=== PATIENT | female | born 2000 | race Caucasian/White ===

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

== ENCOUNTER 2022-01-24 18:56 | Emergency (ER) | payer OTHER, SELFPAY ==
[2022-01-24 19:05] VITALS: BP 108/63; PULSE 72; RESP 16; TEMP 36.7; O2SAT 99
--- NOTE | 2022-01-24 19:08 | ED.SKABFB ---
HPI - Skin/Abscess/Foreign Bdy General Chief complaint: Skin/Abscess/Foreign Body Stated complaint: Bump In Osman Button Time Seen by Provider: 01/24/22 19:07 Source: patient Mode of arrival: ambulatory Limitations: no limitations History of Present Illness HPI narrative: Ms Resendiz is a 21-year-old female patient presenting to the clinic today with complaints of a possible hernia. She reports that she 1st noticed her belly button sticking out 2-3 days ago and it is red and swollen. She denies any fever chills. She denies trying to pop or squeeze this area. Patient does have piercing of the navel. Related Data Home Medications Medication Instructions Recorded Confirmed guanfacine 1 mg tablet 1 mg PO DAILY 10/10/19 01/24/22 lisdexamfetamine 50 mg capsule 50 mg PO DAILY 10/10/19 01/24/22 (Vyvanse) risperidone 0.5 mg tablet 0.5 mg PO BID 10/10/19 01/24/22 topiramate 25 mg tablet 50 mg PO HS 10/10/19 01/24/22 divalproex 250 mg tablet,delayed 250 mg PO DAILY 12/04/21 01/24/22 release etonogestrel 68 mg subdermal 68 mg subdermal DIRECTED 12/04/21 01/24/22 implant (Nexplanon) sertraline 100 mg tablet 100 mg PO DAILY 12/04/21 01/24/22 Allergies Allergy/AdvReac Type Severity Reaction Status Date / Time lamotrigine [From Lamictal] Allergy Blister Verified 01/24/22 19:12 Review of Systems Review of Systems: Pertinent positives per HPI. Patient denies any fever, chills, rash, headache, visual changes, dizziness, cough, runny nose, sore throat, shortness of breath, chest pain, palpitations, nausea, vomiting, diarrhea, constipation, abdominal pain, or any urinary issues. [facility] Past Medical History Medical History History of chlamydia Surgical History Surgical History History of oral surgery Family History Family History Mother Family history non-contributory Social History Social History Smoking status: Never smoker Alcohol intake: never Substance use: never Gender identity (if verbalized by the patient): Female Sexual Orientation (if Verbalized by the Patient): Straight or Heterosexual Spiritual care concerns: No Comments At the time of my signature, I reviewed and agree with the nursing past medical, surgical, social, and family history. There is no relevant family history pertinent to the patient complaint. Exam Narrative: General: Well-developed, well nourished, in no apparent distress Head: Normocephalic, atraumatic. Cardio: Regular rate and rhythm, s1 and s2 normal, no murmur appreciated. Resp: Clear to auscultation bilaterally, no rhonchi, rales, wheezing or rubs. Integumentary: [place], warm, and dry, redness, swelling, and tenderness to the umbilicus. No drainage noted. No induration or surrounding redness Course Course Emergency Course: Portions of this record may have been created with voice recognition software. Level of Care: Express Care Visit Vital Signs Vital signs: Vital Signs Temperature 36.7 C 01/24/22 19:05 Pulse Rate 72 01/24/22 19:05 Respiratory Rate 16 01/24/22 19:05 Blood Pressure 108/63 01/24/22 19:05 Pulse Oximetry 99 01/24/22 19:05 Oxygen Delivery Room Air 01/24/22 19:05 Temperature 36.7 C 01/24/22 19:05 Pulse Rate 72 01/24/22 19:05 Respiratory Rate 16 01/24/22 19:05 Blood Pressure 108/63 01/24/22 19:05 Pulse Oximetry 99 01/24/22 19:05 Oxygen Delivery Room Air 01/24/22 19:05 Vital signs reviewed MDM - Skin/Abscess/Foreign Bdy MDM Narrative Medical decision making narrative: At the time of visit patient is resting comfortably on the exam table. I suspect the patient has an infected umbilicus. prescription for mupirocin cream was sent to the pharmacy and nicholas
== END 2022-01-24 19:13 | disposition home or self-care (01) ==
PROVIDERS: Emergency Provider Nurse Practitioner Family; PCP Pediatrics Adolescent Medicine
DX: S31.145A Puncture wound of abdominal wall with foreign body, periumbilic region without penetration into peritoneal cavity, initial encounter (principal); L08.9 Local infection of the skin and subcutaneous tissue, unspecified; X58.XXXA Exposure to other specified factors, initial encounter
CPT/HCPCS: 99211; G0463

== ENCOUNTER 2022-05-15 18:40 | Emergency (ER) | payer OTHER, SELFPAY ==
[2022-05-15 18:43] VITALS: BP 110/65; PULSE 117; RESP 18; TEMP 37.1; O2SAT 100
[2022-05-15 19:23] VITALS: BP 100/66; PULSE 80; RESP 14; O2SAT 100
[2022-05-15] MEDS: HYDROcodone/acetaminophen (*CRX) 5-325 MG TABLET 1 TAB PO (20:03)
--- NOTE | 2022-05-15 20:15 | ED.SKABFB ---
HPI - Skin/Abscess/Foreign Bdy General Chief complaint: Skin/Abscess/Foreign Body Stated complaint: abcess on buttocks Time Seen by Provider: 05/15/22 19:43 History of Present Illness HPI narrative: Patient is a 22-year-old female who presents ER with concern for abscess to her buttock. It is located at the gluteal cleft. No drainage. Increasing pain over the last couple days. No previous history of pilonidal cyst. Denies fevers or chills or sweats. Patient has been applying baby powder without improvement. Related Data Home Medications Medication Instructions Recorded Confirmed guanfacine 1 mg tablet 1 mg PO DAILY 10/10/19 01/24/22 lisdexamfetamine 50 mg capsule 50 mg PO DAILY 10/10/19 01/24/22 (Vyvanse) risperidone 0.5 mg tablet 0.5 mg PO BID 10/10/19 01/24/22 topiramate 25 mg tablet 50 mg PO HS 10/10/19 01/24/22 divalproex 250 mg tablet,delayed 250 mg PO DAILY 12/04/21 01/24/22 release etonogestrel 68 mg subdermal 68 mg subdermal DIRECTED 12/04/21 01/24/22 implant (Nexplanon) sertraline 100 mg tablet 100 mg PO DAILY 12/04/21 01/24/22 Allergies Allergy/AdvReac Type Severity Reaction Status Date / Time lamotrigine [From Lamictal] Allergy Blister Verified 05/15/22 19:22 Review of Systems Constitutional: Constitutional: Denies chills and Denies fever(s) Integumentary/Breasts: Skin/Breast: Reports erythema, Denies rash and Denies skin ulcer PMFSH Past Medical History Medical History History of chlamydia Surgical History Surgical History History of oral surgery Family History Family History Mother Family history non-contributory Social History Social History Smoking status: Never smoker Alcohol intake: never Substance use: never Gender identity (if verbalized by the patient): Female Sexual Orientation (if Verbalized by the Patient): Straight or Heterosexual Spiritual care concerns: No Exam Narrative: GENERAL: Well-appearing, well-nourished, and in no acute distress. HEAD: Normocephalic, atraumatic. EXTREMITIES: Normal range of motion. No edema. Buttock: Pilonidal cyst gluteal cleft with induration extending out to half centimeters in either direction. Fluctuance centrally. SKIN: Warm, dry, no rash. NEURO: Alert and oriented x3. PSYCH: Normal mood and affect. Course Course Emergency Course: Pilonidal cyst drained. Patient inadvertently popped it while in the restroom but numbing and extension of the drainage site was required for packing. Discharged home with antibiotics and pain medication. Recommend removing packing in 2 days. Patient and mother verbalized understanding treatment plan. Vital Signs Vital signs: Vital Signs Temperature 98.8 F 05/15/22 18:43 Pulse Rate 117 H 05/15/22 18:43 Respiratory Rate 18 05/15/22 18:43 Blood Pressure 110/65 05/15/22 18:43 Pulse Oximetry 100 05/15/22 18:43 Oxygen Delivery Room Air 05/15/22 18:43 Temperature 98.8 F 05/15/22 18:43 Pulse Rate 80 05/15/22 19:23 Respiratory Rate 14 05/15/22 19:23 Blood Pressure 100/66 05/15/22 19:23 Pulse Oximetry 100 05/15/22 19:23 Oxygen Delivery Room Air 05/15/22 18:43 Procedures Abscess I/D pilonidal: Date of Incision: 05/15/22 Time of Incision: 20:30 Local Anesthetic: lidocaine 2% and with epi Amount of anesthesia used (mL): 5 Technique: incised with #11 blade Irrigation: No Packing used?: iodoform I&D Results: Pus Complications: pain Discharge Plan Discharge Clinical Impression: Pilonidal cyst Patient Disposition: Home, Self-Care Condition: Stable Instructions: Antibiotic Form, Pilonidal Cyst (ED) Additional Instructions: Re
== END 2022-05-15 21:10 | disposition home or self-care (01) ==
PROVIDERS: Emergency Provider Emergency Medicine; PCP Pediatrics Adolescent Medicine
DX: L05.91 Pilonidal cyst without abscess (principal)
CPT/HCPCS: 10080; 99283; A9270

== ENCOUNTER 2022-08-01 09:11 | Emergency (ER) | payer OTHER, SELFPAY ==
[2022-08-01 09:12] VITALS: BP 115/68; PULSE 72; RESP 16; TEMP 36.4; O2SAT 100
[2022-08-01] MEDS: CIPROFLOXACIN 500 MG TAB 750 MG PO (09:46)
[2022-08-01] MEDS: MUPIROCIN 2% OINT 22 GM TUBE 1 APPLIC TOPICAL (09:48)
--- NOTE | 2022-08-01 18:45 | ED.EAR ---
HPI - Ear Problem General Chief complaint: Ear Stated complaint: new ear piercing with swelling and redness Time Seen by Provider: 08/01/22 09:28 History of Present Illness HPI Narrative: Patient just got a new helix piercing 4 days ago, then yesterday noticed some redness and swelling. No fevers or chills. Related Data Home Medications Medication Instructions Recorded Confirmed guanfacine 1 mg tablet 1 mg PO DAILY 10/10/19 05/28/22 lisdexamfetamine 50 mg capsule 50 mg PO DAILY 10/10/19 05/28/22 (Vyvanse) risperidone 0.5 mg tablet 0.5 mg PO BID 10/10/19 05/28/22 topiramate 25 mg tablet 50 mg PO HS 10/10/19 05/28/22 guanfacine 1 mg tablet 1 mg PO BID 07/16/20 07/17/20 lisdexamfetamine 50 mg capsule 50 mg PO DAILY 07/16/20 07/16/20 (Vyvanse) risperidone 0.5 mg tablet 0.25 mg PO BID 07/16/20 07/16/20 sertraline 50 mg tablet 75 mg PO DAILY 07/16/20 07/16/20 tretinoin 0.01 % topical gel 1 applic topical HS 07/17/20 07/17/20 divalproex 250 mg tablet,delayed 250 mg PO DAILY 12/04/21 05/28/22 release etonogestrel 68 mg subdermal 68 mg subdermal DIRECTED 12/04/21 05/28/22 implant (Nexplanon) sertraline 100 mg tablet 100 mg PO DAILY 12/04/21 05/28/22 Allergies Allergy/AdvReac Type Severity Reaction Status Date / Time lamotrigine [From Lamictal] Allergy Blister Verified 08/01/22 09:11 Review of Systems Review of Systems: CONST: No fever. HEENT: ear pain C/V: No chest pain RESP: No cough GI: no nausea/vomiting M/S: No joint pain. SKIN: Redness/swelling L ear NEURO: [No headache or focal numbness or weakness] PSYCH: [No depression] PMFSH Past Medical History Medical History History of chlamydia Surgical History Surgical History History of oral surgery Family History Family History Mother Family history non-contributory Social History Social History (System 05/30/22 @ 10:33 by Kaykay James) Social History: The patient lives at home with her adopted mother and 2 adopted brothers. She is the middle child. She is currently a senior in high school in takes ?skills classes.? She denies any alcohol, tobacco or illicit substance use. Smoking status: Never smoker Second hand tobacco smoke exposure: No Alcohol intake: never Substance use: never Substance use type: does not use Gender identity (if verbalized by the patient): Female Sexual Orientation (if Verbalized by the Patient): Straight or Heterosexual Spiritual care concerns: No Exam Narrative: EXAMINATION OF ORGAN SYSTEMS/BODY AREAS: Constitutional: Vital signs per nursing GENERAL: Appears slightly uncomfortable HEAD: Normal with no signs of head trauma. EYES: EOMI, conjunctiva normal ENT: Hearing intact, there is swelling and redness of the helix of the left ear around a piercing, there is no mastoid tenderness, nor tenderness to the facial bones LUNGS: Nonlabored breathing. HEART: [Regular rate and rhythm] ABD: [Soft], [nontender to palpation] EXT: Normal range of motion SKIN: [No rashes or lesions.] NEURO: [Alert and oriented x 3. No gross focal sensory or strength deficits.] PSYCH: Normal affect Course Vital Signs Vital signs: Vital Signs Temperature 97.5 F L 08/01/22 09:12 Pulse Rate 72 08/01/22 09:12 Respiratory Rate 16 08/01/22 09:12 Blood Pressure 115/68 08/01/22 09:12 Pulse Oximetry 100 08/01/22 09:12 Oxygen Delivery Room Air 08/01/22 09:12 Temperature 97.5 F L 08/01/22 09:12 Pulse Rate 72 08/01/22 09:12 Respiratory Rate 16 08/01/22 09:12 Blood Pressure 115/68 08/01/22 09:12 Pulse Oximetry 100 08/01/22 09:12 Oxygen Delivery Room Air 08/01/22 09:12 Medical Decision Making [facility] Narrative Medical decision making narrative: Patient presents here with infected helix pierc
== END 2022-08-01 10:57 | disposition home or self-care (01) ==
PROVIDERS: Emergency Provider Emergency Medicine; PCP Pediatrics Adolescent Medicine
DX: H61.002 Unspecified perichondritis of left external ear (principal)
CPT/HCPCS: 87070; 87147; 87186; 87205; 99283; A9270

== ENCOUNTER 2023-09-20 12:39 | Emergency (ER) | payer OTHER, SELFPAY ==
--- NOTE | 2023-09-20 12:43 | ED.FEMALEGU ---
HPI - Female Genitourinary General Chief complaint: Urogenital-Female Stated complaint: STD Testing Time Seen by Provider: 09/20/23 12:53 Source: patient and RN notes reviewed Mode of arrival: ambulatory Limitations: no limitations History of Present Illness HPI Narrative: 23-year-old female presents with concern for STD. She reports having intercourse with a partner recently who has given her chlamydia in the past. Reports she was last treated for chlamydia in December. She denies abnormal vaginal discharge, reports foul vaginal odor. She denies abdominal pain, fever, aches, chills, sweats MD elicited complaint: possible STD Related Data Home Medications Medication Instructions Recorded Confirmed risperidone 0.5 mg tablet 0.5 mg PO BID 10/10/19 09/20/23 topiramate 25 mg tablet 50 mg PO HS 10/10/19 09/20/23 lisdexamfetamine 50 mg capsule 50 mg PO DAILY 07/16/20 09/20/23 (Vyvanse) sertraline 50 mg tablet 75 mg PO DAILY 07/16/20 09/20/23 tretinoin 0.01 % topical gel 1 applic topical HS 07/17/20 09/20/23 divalproex 250 mg tablet,delayed 250 mg PO DAILY 12/04/21 09/20/23 release etonogestrel 68 mg subdermal 68 mg subdermal DIRECTED 12/04/21 09/20/23 implant (Nexplanon) sertraline 100 mg tablet 100 mg PO DAILY 12/04/21 09/20/23 guanfacine 2 mg tablet,extended 2 mg PO DAILY 09/20/23 09/20/23 release 24 hr Allergies Allergy/AdvReac Type Severity Reaction Status Date / Time lamotrigine [From Lamictal] Allergy Blister Verified 09/20/23 12:40 Review of Systems Review of Systems: CONSTITUTIONAL: Denies malaise, chills, sweats, or fever. CARDIOVASCULAR: Denies chest pain, palpitations, or edema. RESPIRATORY: Denies cough or dyspnea. GASTROINTESTINAL: Denies abdominal pain, nausea, vomiting, diarrhea GENITOURINARY: Denies abnormal vaginal discharge, dysuria, frequency, urgency, suprapubic pressure. Denies flank pain or hematuria. Reports abnormal vaginal odor SKIN: Denies rash or itching. MUSCULOSKELETAL: Denies back pain or myalgia. All systems reviewed & are unremarkable except as noted in HPI and below PMFSH Past Medical History Medical History History of chlamydia Surgical History Surgical History History of oral surgery Family History Family History Mother Family history non-contributory Social History Social History (System 05/30/22 @ 10:33 by Kaykay James) Social History: The patient lives at home with her adopted mother and 2 adopted brothers. She is the middle child. She is currently a senior in high school in takes ?skills classes.? She denies any alcohol, tobacco or illicit substance use. Smoking status: Never smoker Second hand tobacco smoke exposure: No Alcohol intake: never Substance use: never Substance use type: does not use Gender identity (if verbalized by the patient): Female Sexual Orientation (if Verbalized by the Patient): Straight or Heterosexual Spiritual care concerns: No Comments At time of signature, agree with nursing past medical, surgical, social and family history. There is no relevant family history pertinent to the presenting complaint Exam Narrative: GENERAL: Well-appearing, well-nourished, and in no acute distress. HEAD: Normocephalic. EYES: PERRLA, conjunctivae clear. NECK: Supple. No lymphadenopathy CHEST: Clear to auscultation. No respiratory distress. HEART: Regular rate and rhythm. SKIN: Warm, dry, no rash. NEURO: Alert and oriented x3. PSYCH: Normal mood and affect Course Course Emergency Course: Patient's urine has 1+ leukocytes, 1+ blood. However patient is not having typical UTI symptoms, is more concern for STI. We will do urine culture and treat only if necessary for UTI. Patient wanted to get treated today for STI. She was given
[2023-09-20 12:48] VITALS: BP 132/73; PULSE 83; RESP 16; TEMP 36.6; O2SAT 100
[2023-09-20] MEDS: cefTRIAXone 500 MG, LIDOCAINE HCL 1% LOCAL INJ 1 ML IM (13:39)
[2023-09-20 20:04] LABS: Trichomonas Vag PCR NOT DETECTED (NOT DETECTE)
[2023-09-20 20:27] LABS: Chlamydia trachomatis DETECTED (NOT DETECTE); Neisseria gonorrhoeae PCR NOT DETECTED (NOT DETECTE)
== END 2023-09-20 13:50 | disposition home or self-care (01) ==
PROVIDERS: Emergency Provider Nurse Practitioner; PCP Pediatrics Adolescent Medicine
DX: Z11.3 Encounter for screening for infections with a predominantly sexual mode of transmission (principal)
CPT/HCPCS: 81003; 87081; 87086; 87088; 87491; 87591; 87661; 96372; 99214; G0463; J0696

== ENCOUNTER 2023-10-30 14:11 | Emergency (ER) | payer OTHER, SELFPAY ==
[2023-10-30 14:21] VITALS: BP 112/64; PULSE 77; RESP 16; TEMP 36.4; O2SAT 99
--- NOTE | 2023-10-30 14:51 | ED.GENADULT ---
HPI - General Adult General Chief complaint: Urogenital-Female Stated complaint: STI testing Source: patient Mode of arrival: ambulatory Limitations: no limitations History of Present Illness HPI narrative: Patient presents requesting STI evaluation. She was seen here at the end of August at which time she tested positive for chlamydia. Both she and her partner were treated at that time. She has concerns that he has cheated on her and would like additional testing. She did break up with him due to ongoing issues in the relationship. She reports some intermittent vaginal odor over the last 1-2 weeks. She denies any fever, chills, nausea, vomiting, abdominal pain, vaginal discharge, vaginal bleeding. She states the odor is consistent with the odor she has experience with chlamydia in the past. She has a [employer] Home Medications Medication Instructions Recorded Confirmed risperidone 0.5 mg tablet 0.5 mg PO BID 10/10/19 10/30/23 topiramate 25 mg tablet 50 mg PO HS 10/10/19 10/30/23 lisdexamfetamine 50 mg capsule 50 mg PO DAILY 07/16/20 10/30/23 (Vyvanse) sertraline 50 mg tablet 75 mg PO DAILY 07/16/20 10/30/23 tretinoin 0.01 % topical gel 1 applic topical HS 07/17/20 10/30/23 divalproex 250 mg tablet,delayed 250 mg PO DAILY 12/04/21 10/30/23 release etonogestrel 68 mg subdermal 68 mg subdermal DIRECTED 12/04/21 10/30/23 implant (Nexplanon) sertraline 100 mg tablet 100 mg PO DAILY 12/04/21 10/30/23 guanfacine 2 mg tablet,extended 2 mg PO DAILY 09/20/23 10/30/23 release 24 hr Allergies Allergy/AdvReac Type Severity Reaction Status Date / Time lamotrigine [From Lamictal] Allergy Blister Verified 09/20/23 12:40 Review of Systems Review of Systems: CONSTITUTIONAL: Denies fever, chills, or sweats. EYES: Denies visual changes, redness, or discharge. ENT: Denies rhinorrhea, congestion, sore throat, or otalgia. CARDIOVASCULAR: Denies chest pain, palpitations, or edema. RESPIRATORY: Denies cough or dyspnea. GASTROINTESTINAL: Denies abdominal pain, nausea, vomiting, or diarrhea. GENITOURINARY: Reports intermittent vaginal odor. Denies vaginal discharge or bleeding. Denies dysuria or hematuria. SKIN: Denies rash or itching. MUSCULOSKELETAL: Denies back pain, joint pain, or myalgia. NEUROLOGIC: Denies headache, numbness, dizziness, or weakness. PSYCHIATRIC: Denies anxiety or depression. PMFSH Past Medical History Medical History ADHD Anxiety Bipolar 1 disorder Depression Depression General learning disability History of chlamydia Surgical History Surgical History History of oral surgery History of oral surgery Family History Family History Mother Family history non-contributory Other Adopted Unknown family medical history Social History Social History Social History: The patient lives at home with her adopted mother and 2 adopted brothers. She is the middle child. She is currently a senior in high school in takes ?skills classes.? She denies any alcohol, tobacco or illicit substance use. Smoking status: Never smoker Second hand tobacco smoke exposure: No Alcohol intake: never Substance use: never Substance use type: does not use Gender identity (if verbalized by the patient): Female Sexual Orientation (if Verbalized by the Patient): Straight or Heterosexual Spiritual care concerns: No Exam Narrative: GENERAL: Well-appearing, well-nourished, and in no acute distress. HEAD: Normocephalic, atraumatic. EYES: PERRLA and EOMI. ENT: Nares clear, no rhinorrhea or epistaxis. Mucous membranes moist. Oropharynx without tonsillar hypertrophy exudate or other lesions. Bilateral TMs pearly hernandez nonbulging NECK: Suppl
[2023-10-30 15:00] LABS: EDUAAPPEAR Clear; EDUABILI 1+; EDUABLOOD Negative; EDUACOLOR1 Yellow; EDUAGLUCOSE Negative; EDUAKETONE Trace; EDUALEUKO 3+; EDUANITRATE Negative; EDUAPROTEIN 2+; EDUASPGRAVITY 1.025
[2023-10-30 21:23] LABS: Trichomonas Vag PCR NOT DETECTED (NOT DETECTE)
[2023-10-30 21:48] LABS: Chlamydia trachomatis NOT DETECTED (NOT DETECTE); Neisseria gonorrhoeae PCR DETECTED (NOT DETECTE)
== END 2023-10-30 14:56 | disposition home or self-care (01) ==
PROVIDERS: Emergency Provider Nurse Practitioner; PCP Pediatrics Adolescent Medicine
DX: Z20.822 Contact with and (suspected) exposure to COVID-19 (principal); F90.9 Attention-deficit hyperactivity disorder, unspecified type; F41.9 Anxiety disorder, unspecified; F31.9 Bipolar disorder, unspecified
CPT/HCPCS: 81003; 87077; 87086; 87088; 87491; 87591; 87661; 99214; G0463

== ENCOUNTER 2023-11-05 13:03 | Emergency (ER) | payer OTHER, SELFPAY ==
[2023-11-05 13:12] VITALS: BP 130/67; PULSE 72; RESP 16; TEMP 36.3; O2SAT 100
--- NOTE | 2023-11-05 13:15 | ED.GENADULT ---
HPI - General Adult General Chief complaint: Unspecified Stated complaint: STD treatment Time Seen by Provider: 11/05/23 13:15 Source: patient, RN notes reviewed and old records reviewed Mode of arrival: ambulatory Limitations: no limitations History of Present Illness HPI narrative: 23-year-old female presents to the [facility] after testing positive for gonorrhea on the 29 of October. Patient has no complaints at this time Related Data Home Medications Medication Instructions Recorded Confirmed risperidone 0.5 mg tablet 0.5 mg PO BID 10/10/19 11/05/23 topiramate 25 mg tablet 50 mg PO HS 10/10/19 11/05/23 lisdexamfetamine 50 mg capsule 50 mg PO DAILY 07/16/20 11/05/23 (Vyvanse) sertraline 50 mg tablet 75 mg PO DAILY 07/16/20 11/05/23 tretinoin 0.01 % topical gel 1 applic topical HS 07/17/20 11/05/23 divalproex 250 mg tablet,delayed 250 mg PO DAILY 12/04/21 11/05/23 release etonogestrel 68 mg subdermal 68 mg subdermal DIRECTED 12/04/21 11/05/23 implant (Nexplanon) sertraline 100 mg tablet 100 mg PO DAILY 12/04/21 11/05/23 guanfacine 2 mg tablet,extended 2 mg PO DAILY 09/20/23 11/05/23 release 24 hr Allergies Allergy/AdvReac Type Severity Reaction Status Date / Time lamotrigine [From Lamictal] Allergy Blister Verified 11/05/23 13:09 Review of Systems Review of Systems: All systems reviewed & are unremarkable except as noted in HPI and below Constitutional: Constitutional: Reports no additional constitutional complaints Eyes: Eyes: Reports no additional eye complaints ENT: Reports system reviewed and no additional complaints, except as documented Cardiovascular: Cardiovascular: Reports no additional cardiovascular complaints, Denies chest pain and Denies dyspnea Respiratory: Respiratory: Reports no additional respiratory complaints, Denies chest congestion, Denies cough and Denies dyspnea Gastrointestinal: Gastrointestinal: Reports no additional gastrointestinal complaints, Denies abdominal pain, Denies nausea and Denies vomiting Musculoskeletal: Musculoskeletal: Reports no additional musculoskeletal complaints Integumentary/Breasts: Skin/Breast: Reports system reviewed and no additional complaints, except as docu Neurologic: Reports system reviewed and no additional complaints, except as documented Psychiatric: Psychiatric: Reports no additional psychiatric complaints Allergic/Immunologic: Allergic/Immunologic: Reports no additional allergic/immunologic complaints [facility] Past Medical History Medical History ADHD Anxiety Bipolar 1 disorder Depression Depression General learning disability History of chlamydia Surgical History Surgical History History of oral surgery History of oral surgery Family History Family History Mother Family history non-contributory Other Adopted Unknown family medical history Social History Social History Social History: The patient lives at home with her adopted mother and 2 adopted brothers. She is the middle child. She is currently a senior in high school in takes ?skills classes.? She denies any alcohol, tobacco or illicit substance use. Smoking status: Never smoker Second hand tobacco smoke exposure: No Alcohol intake: never Substance use: never Substance use type: does not use Gender identity (if verbalized by the patient): Female Sexual Orientation (if Verbalized by the Patient): Straight or Heterosexual Spiritual care concerns: No Comments At the time of my signature, I reviewed and agree with the nursing past medical, surgical, social, and family history. There is no relevant family history pertinent to the patient complaint. Exam Const: General: cooperative, healthy appearing, comfortable, no a
[2023-11-05] MEDS: cefTRIAXone 500 MG, LIDOCAINE HCL 1% LOCAL INJ 1 ML IM (13:22)
== END 2023-11-05 13:27 | disposition home or self-care (01) ==
PROVIDERS: Emergency Provider Nurse Practitioner; PCP Pediatrics Adolescent Medicine
DX: A54.9 Gonococcal infection, unspecified (principal); F90.9 Attention-deficit hyperactivity disorder, unspecified type; F41.9 Anxiety disorder, unspecified; F31.9 Bipolar disorder, unspecified
CPT/HCPCS: 96372; 99213; G0463; J0696

== ENCOUNTER 2024-02-17 13:10 | Emergency (ER) | payer OTHER, SELFPAY ==
[2024-02-17 13:22] VITALS: BP 115/71; PULSE 84; RESP 18; TEMP 36.4; O2SAT 100
[2024-02-17 13:31] LABS: EDUAAPPEAR Cloudy; EDUABILI Negative (Negative); EDUABLOOD Trace (Negative); EDUACOLOR1 Yellow; EDUAGLUCOSE Negative (Negative); EDUAKETONE Negative (Negative); EDUALEUKO 1+ (Negative); EDUANITRATE Negative (Negative); EDUAPH 7.5; EDUAPROTEIN Negative (Negative); EDUASPGRAVITY 1.025
--- NOTE | 2024-02-17 13:48 | ED.FEMALEGU ---
HPI - Female Genitourinary General Chief complaint: Urogenital-Female Stated complaint: uti symptoms Time Seen by Provider: 02/17/24 13:30 Source: patient, RN notes reviewed and old records reviewed Mode of arrival: ambulatory Limitations: no limitations History of Present Illness HPI Narrative: Patient presents today complaining of a 2-3 day history of dysuria and urinary frequency. She denies any fever, abdominal pain, back pain. She is also requesting testing for STIs. States her male partner has likely been cheating on her but has not confessed to it or confessed to having any current infections. Patient states she is having some white vaginal discharge that it is only slightly more than normal. It is not malodorous. 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 Related Data Home Medications Medication Instructions Recorded Confirmed risperidone 0.5 mg tablet 0.5 mg PO BID 10/10/19 02/17/24 topiramate 25 mg tablet 50 mg PO HS 10/10/19 02/17/24 lisdexamfetamine 50 mg capsule 50 mg PO DAILY 07/16/20 02/17/24 (Vyvanse) divalproex 250 mg tablet,delayed 250 mg PO DAILY 12/04/21 02/17/24 release etonogestrel 68 mg subdermal 68 mg subdermal DIRECTED 12/04/21 02/17/24 implant (Nexplanon) sertraline 100 mg tablet 100 mg PO DAILY 12/04/21 02/17/24 guanfacine 2 mg tablet,extended 2 mg PO DAILY 09/20/23 02/17/24 release 24 hr Allergies Allergy/AdvReac Type Severity Reaction Status Date / Time lamotrigine [From Lamictal] Allergy Blister Verified 02/17/24 13:27 Review of Systems Review of Systems: CONSTITUTIONAL: Denies body aches, fever, chills, or sweats. EYES: Denies visual changes, redness, or discharge. ENT: Denies rhinorrhea, congestion, sore throat, or otalgia. CARDIOVASCULAR: Denies chest pain, palpitations, or edema. RESPIRATORY: Denies cough or dyspnea. GASTROINTESTINAL: Denies abdominal pain, nausea, vomiting, or diarrhea. GENITOURINARY: + dysuria, frequency, vaginal discharge SKIN: Denies rash, itching, or wounds. MUSCULOSKELETAL: Denies back pain, joint pain, or myalgia. NEUROLOGIC: Denies headache, numbness, tingling, or weakness. PSYCH: Denies depression or anxiety. [facility] Past Medical History Medical History ADHD Anxiety Bipolar 1 disorder Depression Depression General learning disability History of chlamydia Surgical History Surgical History History of oral surgery History of oral surgery Family History Family History Mother Family history non-contributory Other Adopted Unknown family medical history Social History Social History Social History: The patient lives at home with her adopted mother and 2 adopted brothers. She is the middle child. She is currently a senior in high school in takes ?skills classes.? She denies any alcohol, tobacco or illicit substance use. Smoking status: Never smoker Second hand tobacco smoke exposure: No Alcohol intake: never Substance use: never Substance use type: does not use Gender identity (if verbalized by the patient): Female Sexual Orientation (if Verbalized by the Patient): Straight or Heterosexual Spiritual care concerns: No Comments At time of signature, I have reviewed and agree with nursing past medical, surgical, social and family history unless otherwise noted. Please see nursing chart for further information. There is no relevant family history pertinent to the presenting complaint Exam Narrative: GENERAL: Well-appearing, well-nourished, and in no acute distress. HEAD: Normocephalic, atraumatic. EYES: EOMI. No redness or drainage. Conjunctivae normal. ENT: Mucous membranes pink and moist. NECK: Normal AROM. CHEST: No respiratory distress. : Patient declines pelvic exam today. Self-swabs for testing. EXTREMITIES: Normal range of motion. No edema. SKIN: Warm, dry, no rash. Capillary refill normal. Normal skin turgor. NEURO: No focal deficits. Alert and oriented x3. Gait steady. PSYCH: Normal affect. No signs of depression or anxiety. Course Course Level of Care: Express Care Visit Vital Signs Vital signs: Vital Signs Temperature 97.6 F 02/17/24 13:22 Pulse Rate 84 02/17/24 13:22 Respiratory Rate 18 02/17/24 13:22 Blood Pressure 115/71 02/17/24 13:22 Pulse Oximetry 100 02/17/24 13:22 Oxygen Delivery Room Air 02/17/24 13:22 Temperature 97.6 F 02/17/24 13:22 Pulse Rate 84 02/17/24 13:22 Respiratory Rate 18 02/17/24 13:22 Blood Pressure 115/71 02/17/24 13:22 Pulse Oximetry 100 02/17/24 13:22 Oxygen Delivery Room Air 02/17/24 13:22 Reviewed MDM - Female Genitourinary MDM Narrative Medical decision making narrative: Urinalysis is consistent with UTI. Will start prescription for Augmentin. Urine culture pending. Swab sent to lab for gonorrhea, chlamydia, Trichomonas. Patient declines to start on prophylactic treatment. She has also been urged to follow-up with OBGYN or an STD clinic for additional testing for HIV, syphilis etc. patient agrees with plan. Anticipatory guidance given. Differential Diagnosis Differential diagnosis: Likely urinary tract infection, vaginitis and cystitis Lab Data Attestation: I reviewed the patient's lab results. Labs: Lab Results 02/17/24 Range/Units 13:29 POC Urine Color Yellow POC Urine Clarity Cloudy POC Urine pH 7.5 POC Ur Specif [place] 1.025 POC Urine Protein Negative (Negative) POC Ur Glucose (UA) Negative (Negative) POC Urine Ketones Negative (Negative) POC Urine Blood Trace (Negative) POC Urine Nitrite Negative (Negative) POC Urine Bilirubin Negative (Negative) POC Urine Urobilinogen 1.0 POC U Leukocyte Esteras 1+ (Negative) Critical Care Time Critical Care Time Critical Care Time: No Discharge Plan Discharge Clinical Impression: Screen for STD (sexually transmitted disease) UTI (urinary tract infection) Qualifiers: Urinary tract infection type: acute cystitis Hematuria presence: with hematuria Qualified Code(s): N30.01 - Acute cystitis with hematuria Patient Disposition: Home, Self-Care Condition: Stable Instructions: Antibiotic Form, Urinary Tract Infection in Women (DC) Additional Instructions: Your urine shows infection today. Take Augmentin as prescribed until gone. Your urine will be sent of for a culture to identify what type of bacteria is causing your infection. If the culture shows that your medication will not get rid of your infection, you will be notified and a new antibiotic will be called in for you. If your symptoms worsen to include fever, sweats, chills, nausea, vomiting, severe abdominal or back pain, please go to the ER for further evaluation. A swab has also been sent to the hospital to test for gonorrhea, chlamydia, and Trichomonas. You will be notified of any positive results in the next 1-2 days. You have declined starting on any antibiotics prophylactically for these infection. If you test positive, antibiotics will be called in for you at the pharmacy for chlamydia and Trichomonas, or you will need to return to Urgent Care for an injection for gonorrhea. Prescriptions: New amoxicillin-pot clavulanate 875-125 mg tablet 1 tablet PO Q12H 7 Days Qty: 14 0RF No Action divalproex 250 mg tablet,delayed release (DR/EC) 250 mg PO DAILY sertraline 100 mg tablet 100 mg PO DAILY Nexplanon 68 mg Implant 68 mg SUBDERMAL DIRECTED guanfacine 2 mg tablet extended release 24 hr 2 mg PO DAILY lisdexamfetamine [Vyvanse] 50 mg capsule 50 mg PO DAILY topiramate 25 mg tablet 50 mg PO HS risperidone 0.5 mg tablet 0.5 mg PO BID Follow-up/Referrals: PHYSICIAN,[employer] FURNACE INSTALLER [Primary Care Provider] - Time of Disposition: 13:48
[2024-02-17 21:39] LABS: Trichomonas Vag PCR NOT DETECTED (NOT DETECTE)
[2024-02-17 22:03] LABS: Chlamydia trachomatis NOT DETECTED (NOT DETECTE); Neisseria gonorrhoeae PCR NOT DETECTED (NOT DETECTE)
== END 2024-02-17 13:51 | disposition home or self-care (01) ==
PROVIDERS: Emergency Provider Nurse Practitioner
DX: N30.01 Acute cystitis with hematuria (principal); B96.20 Unspecified Escherichia coli [E. coli] as the cause of diseases classified elsewhere; B95.7 Other staphylococcus as the cause of diseases classified elsewhere; Z11.3 Encounter for screening for infections with a predominantly sexual mode of transmission; F90.9 Attention-deficit hyperactivity disorder, unspecified type; F41.9 Anxiety disorder, unspecified; F31.9 Bipolar disorder, unspecified
CPT/HCPCS: 81003; 87086; 87186; 87491; 87591; 87661; 99213; G0463

== ENCOUNTER 2024-03-18 13:23 | Emergency (ER) | payer OTHER, SELFPAY ==
[2024-03-18 13:37] VITALS: BP 117/60; PULSE 117; RESP 16; TEMP 36.3; O2SAT 100
--- NOTE | 2024-03-18 14:04 | ED.FEMALEGU ---
HPI - Female Genitourinary General Chief complaint: Urogenital-Female Stated complaint: std check Time Seen by Provider: 03/18/24 13:45 Source: patient, RN notes reviewed and old records reviewed Mode of arrival: ambulatory Limitations: no limitations History of Present Illness HPI Narrative: patient presents with complaints of white vaginal discharge and vaginal odor. She reports this problem is frequent for her. States that currently symptoms have been present for a week. She denies any itching. She denies any pain. She reports BV in the past, states she is concerned that this could be the problem. Then goes on to say if I have anything else I want to know about it . She voices no other concerns or complete Related Data Home Medications ?Medication ?Instructions ?Recorded ?Confirmed ?Last Taken ?Type risperidone 0.5 mg tablet 0.5 mg PO BID 10/10/19 02/17/24 Unknown History topiramate 25 mg tablet 50 mg PO HS 10/10/19 02/17/24 Unknown History lisdexamfetamine 50 mg capsule 50 mg PO DAILY 07/16/20 02/17/24 Unknown History (Vyvanse) divalproex 250 mg tablet,delayed 250 mg PO DAILY 12/04/21 02/17/24 Unknown History release etonogestrel 68 mg subdermal 68 mg subdermal DIRECTED 12/04/21 02/17/24 Unknown History implant (Nexplanon) sertraline 100 mg tablet 100 mg PO DAILY 12/04/21 02/17/24 Unknown History guanfacine 2 mg tablet,extended 2 mg PO DAILY 09/20/23 02/17/24 Unknown History release 24 hr Allergies Allergy/AdvReac Type Severity Reaction Status Date / Time lamotrigine (From Lamictal) AdvReac Mild Blister Verified 03/18/24 13:35 Review of Systems Review of Systems: All systems reviewed & are unremarkable except as noted in HPI and below Constitutional: Constitutional: Reports no additional constitutional complaints ENT: Reports system reviewed and no additional complaints, except as documented Cardiovascular: Cardiovascular: Reports no additional cardiovascular complaints Respiratory: Respiratory: Reports no additional respiratory complaints Gastrointestinal: Gastrointestinal: Reports no additional gastrointestinal complaints Genitourinary: Genitourinary: Reports no additional female genitourinary complaints and Reports as per HPI [facility] Past Medical History Medical History General learning disability ADHD Depression Anxiety Bipolar 1 disorder Depression History of chlamydia Surgical History Surgical History History of oral surgery History of oral surgery Family History Family History Mother Family history non-contributory Other Adopted Unknown family medical history Social History Social History Social History: The patient lives at home with her adopted mother and 2 adopted brothers. She is the middle child. She is currently a senior in high school in takes ?skills classes.? She denies any alcohol, tobacco or illicit substance use. Smoking status: Never smoker Second hand tobacco smoke exposure: No Alcohol intake: never Substance use: never Substance use type: does not use Gender identity (if verbalized by the patient): Female Sexual Orientation (if Verbalized by the Patient): Straight or Heterosexual Spiritual care concerns: No Exam Const: General: cooperative, no acute distress, alert and awake Orientation/consciousness: oriented to person, oriented to place and oriented to time HENMT: Head: normal to inspection Resp: Effort & Inspection: normal respiratory effort and able to speak in complete sentences Auscultation: clear to auscultation bilaterally, no crackles, no rales, no rhonchi and no wheezes Cardio: Palpation: normal PMI Rate: regular rate Rhythm: regular rhythm Heart sounds: S1 normal heart sound present and S2 normal heart sound present Neuro: General: oriented to person, oriented to place and oriented to time Cranial nerves: Yes CN's II-XII intact bilaterally Psych: Appearance: grossly normal Thought process: Normal thought process present Insight: Good insight present (Psych) Judgement: Good judgement present (Psych) Course Course Level of Care: Express Care Visit Vital Signs Vital signs: Vital Signs Temperature 97.3 F L 03/18/24 13:37 Pulse Rate 117 H 03/18/24 13:37 Respiratory Rate 16 03/18/24 13:37 Blood Pressure 117/60 03/18/24 13:37 Pulse Oximetry 100 03/18/24 13:37 Oxygen Delivery Room Air 03/18/24 13:37 Temperature 97.3 F L 03/18/24 13:37 Pulse Rate 117 H 03/18/24 13:37 Respiratory Rate 16 03/18/24 13:37 Blood Pressure 117/60 03/18/24 13:37 Pulse Oximetry 100 03/18/24 13:37 Oxygen Delivery Room Air 03/18/24 13:37 MDM - Female Genitourinary MDM Narrative Medical decision making narrative: specimen is pending in lab. No treatment at this time given frequency of patient's symptoms. Discharge instructions reviewed with patient, as well as provided in writing per nursing staff. The instructions also include specific and strict return/GO TO THE ER as well as f/u information. All questions have been answered, and the patient deny any further questions with discharge and discharge plan. Dictate Differential Diagnosis Differential diagnosis: Likely bacterial vaginosis, trichomoniasis, cervicitis and vaginitis Medical Records Attestation: I reviewed the patient's medical records. Discharge Plan Discharge Clinical Impression: Vaginal discharge Patient Disposition: Home, Self-Care Condition: Stable Instructions: Antibiotic Form, Vaginal Discharge (ED) Patient Language: Panamanian Prescriptions: No Action divalproex 250 mg tablet,delayed release (DR/EC) 250 mg PO DAILY sertraline 100 mg tablet 100 mg PO DAILY Nexplanon 68 mg Implant 68 mg SUBDERMAL DIRECTED guanfacine 2 mg tablet extended release 24 hr 2 mg PO DAILY lisdexamfetamine [Vyvanse] 50 mg capsule 50 mg PO DAILY topiramate 25 mg tablet 50 mg PO HS risperidone 0.5 mg tablet 0.5 mg PO BID Follow-up/Referrals: PHYSICIAN,TALENT [employer]UTIONS MANAGER [Primary Care Provider] - 2 Weeks Time of Disposition: 14:08
[2024-03-18 20:00] LABS: Trichomonas Vag PCR NOT DETECTED (NOT DETECTE)
[2024-03-18 20:26] LABS: Chlamydia trachomatis NOT DETECTED (NOT DETECTE); Neisseria gonorrhoeae PCR NOT DETECTED (NOT DETECTE)
[2024-03-19 12:43] LABS: Bacterial Vaginosis POSITIVE (NEGATIVE)
== END 2024-03-18 14:12 | disposition home or self-care (01) ==
PROVIDERS: Emergency Provider Nurse Practitioner Family; Referring Provider Family Medicine
DX: N76.0 Acute vaginitis (principal); F90.9 Attention-deficit hyperactivity disorder, unspecified type; F41.9 Anxiety disorder, unspecified; F31.9 Bipolar disorder, unspecified
CPT/HCPCS: 81513; 87491; 87591; 87661; 99214; G0463

== ENCOUNTER 2024-04-15 15:26 | Emergency (ER) | payer OTHER, SELFPAY ==
[2024-04-15 15:47] VITALS: BP 123/61; PULSE 86; RESP 16; TEMP 36.4; O2SAT 99
--- NOTE | 2024-04-15 15:47 | ED.EYEPROB ---
HPI - Eye Problem General Chief complaint: Eye Problems Stated complaint: right eye red,discharge Time Seen by Provider: 04/15/24 15:59 Source: patient and RN notes reviewed Mode of arrival: ambulatory Limitations: no limitations History of Present Illness HPI Narrative: 23-year-old female presents with concern for bilateral eye redness, drainage. 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 She reports eyes are irritated but, denies vision changes. MD chief complaint: eye redness Related Data Home Medications ?Medication ?Instructions ?Recorded ?Confirmed ?Last Taken ?Type risperidone 0.5 mg tablet 0.5 mg PO BID 10/10/19 02/17/24 Unknown History topiramate 25 mg tablet 50 mg PO HS 10/10/19 02/17/24 Unknown History lisdexamfetamine 50 mg capsule 50 mg PO DAILY 07/16/20 02/17/24 Unknown History (Vyvanse) divalproex 250 mg tablet,delayed 250 mg PO DAILY 12/04/21 02/17/24 Unknown History release etonogestrel 68 mg subdermal 68 mg subdermal DIRECTED 12/04/21 02/17/24 Unknown History implant (Nexplanon) sertraline 100 mg tablet 100 mg PO DAILY 12/04/21 02/17/24 Unknown History guanfacine 2 mg tablet,extended 2 mg PO DAILY 09/20/23 02/17/24 Unknown History release 24 hr Allergies Allergy/AdvReac Type Severity Reaction Status Date / Time lamotrigine (From Lamictal) AdvReac Mild Blister Verified 04/15/24 16:03 Review of Systems Review of Systems: CONSTITUTIONAL: Denies malaise, chills, sweats, or fever. EYES: Denies visual changes. Reports bilateral redness, irritation, discharge. ENT: Denies rhinorrhea, congestion, sinus pain, otalgia or sore throat. SKIN: Denies rash or itching. NEUROLOGIC: Denies numbness, weakness, or headache. PSYCHIATRIC: Denies anxiety or depression. All systems reviewed & are unremarkable except as noted in HPI and below PMFSH Past Medical History Medical History General learning disability ADHD Depression Anxiety Bipolar 1 disorder Depression History of chlamydia Surgical History Surgical History History of oral surgery History of oral surgery Family History Family History Mother Family history non-contributory Other Adopted Unknown family medical history Social History Social History Social History: The patient lives at home with her adopted mother and 2 adopted brothers. She is the middle child. She is currently a senior in high school in takes ?skills classes.? She denies any alcohol, tobacco or illicit substance use. Smoking status: Never smoker Second hand tobacco smoke exposure: No Alcohol intake: never Substance use: never Substance use type: does not use Gender identity (if verbalized by the patient): Female Sexual Orientation (if Verbalized by the Patient): Straight or Heterosexual Spiritual care concerns: No Comments At time of signature, agree with nursing past medical, surgical, social and family history. There is no relevant family history pertinent to the presenting complaint Exam Narrative: GENERAL: Well-appearing, well-nourished, and in no acute distress. HEAD: Normocephalic, atraumatic. EYES: PERRLA and EOMI. No nystagmus. Bilateral sclera and conjunctivae injected. Upper and lower eyelid unremarkable, no periorbital edema noted ENT: Nares clear, turbinates pink, no rhinorrhea or epistaxis. Mucous membranes moist. TM pearly hernandez with sharp light reflex bilaterally; no tragal tenderness. NECK: Supple. CHEST: No respiratory distress. Speaks in full sentences. HEART: Regular rate and rhythm. SKIN: Warm, dry, no visible rash. NEURO: Alert and oriented x3. PSYCH: Normal mood and affect Course Course Emergency Course: Patient is aware of diagnosis, understands and agrees to treatment plan. Anticipatory guidance given. Patient agrees to follow-up as directed and is aware of reasons to seek care at the emergency department. Portions of this record may have been created with voice recognition software Level of Care: Express Care Visit Vital Signs Vital signs: Reviewed. MDM - Eye Problem MDM Narrative Medical decision making narrative: Consideration of the following conditions may be warranted for the presenting problem, they are not final diagnoses: Bacterial conjunctivitis, allergic conjunctivitis, viral conjunctivitis, foreign body, blepharitis, chalazion, hordeolum, corneal abrasion, preseptal cellulitis, orbital cellulitis. No evidence of proptosis, ophthalmoplegia, vision loss, pain with eye movement. Exam findings show no acute concerns or changes; patient is non-toxic appearing and is in no distress. Patient is appropriate for outpatient treatment and follow-up. Critical Care Time Critical Care Time Critical Care Time: No Discharge Plan Discharge Clinical Impression: Conjunctivitis Patient Disposition: Home, Self-Care Condition: Stable Instructions: Conjunctivitis (ED) Additional Instructions: Do not touch or rub your eye. Use a warm or cool washcloth on your eye for comfort Use eyedrops as directed Practice good handwashing and hygiene to prevent spread of infection You may take Tylenol or ibuprofen for pain Follow-up with PCP or machine puller and laster if condition is not improving in 2-3days. Go to the emergency room if you have pain behind your eye, pressure behind your eye, difficulty seeing, or other severe symptoms Patient Language: Palestinian Prescriptions: New polymyxin B sulf-trimethoprim 10,000 unit- 1 mg/mL drops 1 drp EACH EYE Q3H 7 Days Qty: 10 0RF Rx Instructions: while awake; do not exceed 6 doses in 24 hours No Action metronidazole 500 mg tablet 500 mg PO Q12H Qty: 14 0RF divalproex 250 mg tablet,delayed release (DR/EC) 250 mg PO DAILY sertraline 100 mg tablet 100 mg PO DAILY Nexplanon 68 mg Implant 68 mg SUBDERMAL DIRECTED guanfacine 2 mg tablet extended release 24 hr 2 mg PO DAILY lisdexamfetamine [Vyvanse] 50 mg capsule 50 mg PO DAILY topiramate 25 mg tablet 50 mg PO HS risperidone 0.5 mg tablet 0.5 mg PO BID Follow-up/Referrals: PHYSICIAN,[employer]ER [Primary Care Provider] -
== END 2024-04-15 16:06 | disposition home or self-care (01) ==
PROVIDERS: Emergency Provider Nurse Practitioner
DX: H10.9 Unspecified conjunctivitis (principal); F90.9 Attention-deficit hyperactivity disorder, unspecified type; F41.9 Anxiety disorder, unspecified; F31.9 Bipolar disorder, unspecified
CPT/HCPCS: 99213; G0463